=== PATIENT | female | born 1975 | race Caucasian/White ===

== ENCOUNTER 2018-12-13 23:38 | Emergency (ER) | payer SELFPAY ==
[~2018-12-13] VITALS: Ht 147.3 cm; Wt 59.0 kg
[2018-12-14 00:08] LABS: Urine Pregnacy Test Negative (Negative)
[2018-12-14 00:12] LABS: Urine Bacteria NONE SEEN /hpf (None Seen); Urine Blood Negative /uL (Negative); Urine Mucus FEW (None Seen); Urine Specific Gravity 1.036 (1.001-1.035); Urine WBC 4 /hpf (0 - 5)
[2018-12-14 00:26] LABS: Alcohol, Urine < 3.0 mg/dL (0-5); Amphetamine Screen, Urine NEGATIVE (NEGATIVE); Barbiturate Scree,Urine NEGATIVE (NEGATIVE); Benzodiazephine Screen, Urine NEGATIVE (NEGATIVE); Cannabinoid Screen, Urine NEGATIVE (NEGATIVE); Cocaine Screen, Urine NEGATIVE (NEGATIVE); Phencyclidine Screen, Urine NEGATIVE (NEGATIVE)
[2018-12-14 00:37] LABS: Opiate Scree,Urine POSITIVE (NEGATIVE)
[2018-12-14 01:42] VITALS: BP 131/89
== END 2018-12-14 02:48 ==
LOC: ER 23:45
DX: V43.52XA Car driver injured in collision with other type car in traffic accident, initial encounter; Y93.89 Activity, other specified; Y99.8 Other external cause status; Y92.410 Unspecified street and highway as the place of occurrence of the external cause
CPT/HCPCS: 70450; 80307; 81001; 81025